=== PATIENT | female | born 2000 | race Two or more races ===

== ENCOUNTER 2021-07-15 17:37 | Emergency (ER) | payer MEDICAID ==
[~2021-07-15] VITALS: Ht 154.9 cm; Wt 49.9 kg
[2021-07-15 17:59] VITALS: BP 113/68
[2021-07-15] MEDS ORDERED: IBUP800T27 PO (19:55)
[2021-07-15] MEDS: KETOROLAC TROMETH 30 MG/ML 1ML VIAL IM ONE ×2 (20:01→20:16)
== END 2021-07-15 20:30 | disposition home or self-care (01) ==
LOC: ER 17:37
DX: L05.01 Pilonidal cyst with abscess (principal)
CPT/HCPCS: 96372; 99283; J1885

== ENCOUNTER 2022-05-29 12:05 | Emergency (ER) | payer MEDICAID ==
[~2022-05-29] VITALS: Ht 154.9 cm; Wt 47.8 kg
[~2022-05-29 12:05] MED LIST: IBUP800T27 PO
[2022-05-29 13:17] LABS: Urine Bacteria NONE SEEN /hpf (None Seen); Urine Blood 1+ /uL (Negative); Urine Mucus FEW (None Seen); Urine Specific Gravity 1.029 (1.001-1.035); Urine WBC 1 /hpf (0 - 5)
[2022-05-29 14:22] VITALS: BP 101/99
[2022-05-29] MEDS ORDERED: METR500T14 PO (15:14)
== END 2022-05-29 15:19 | disposition home or self-care (01) ==
LOC: ER 12:05
DX: N76.0 Acute vaginitis (principal)
CPT/HCPCS: 81001; 87210